=== PATIENT | male | born 1985 | race Caucasian/White ===

== ENCOUNTER 2016-04-28 00:25 | Emergency (ER) | payer MEDICAID ==
[2016-04-28 01:40] LABS: HEMATOCRIT 43.8 % (42.0-54.0); HEMOGLOBIN 14.8 g/dL (13.5-17.5); LYMPHOCYTES 32.3 % (15-50); MCH 28.6 pg (26.0-34.0); MCHC 33.8 g/dL (31.0-37.0); MCV 84.6 fL (80.0-100.0); MEAN PLATELET VOLUME 9.7 fL (7.4-10.4); NEUTROPHILS 58.4 % (40-80); PLATELET COUNT 203 10x3/uL (130-400); RBC 5.18 10x6/uL (4.20-6.10); RDW 12.4 % (11.5-14.5); WBC 6.8 10x3/uL (4.8-10.8)
[2016-04-28 02:16] LABS: ALBUMIN 3.3 g/dL (3.4-5.0); BILIRUBIN - TOTAL 0.27 mg/dL (0.2-1.3); CALCIUM 8.9 mg/dL (8.5-10.1); CARBON DIOXIDE 29.2 mmol/L (21.0-32.0); CREATININE - SERUM 1.4 mg/dL (0.6-1.3); POTASSIUM - SERUM 4.2 mmol/L (3.5-5.1); PROTEIN - SERUM 7.4 g/dL (6.4-8.2)
[2016-04-28 02:17] LABS: APPEARANCE CLEAR (CLEAR); BILIRUBIN NEGATIVE (NEGATIVE); COLOR STRAW (YELLOW); GLUCOSE 1000 mg/dL (NEGATIVE); KETONE NEGATIVE (NEGATIVE); LEUKOCYTE ESTERASE NEGATIVE (NEGATIVE); NITRITE NEGATIVE (NEGATIVE); PROTEIN NEGATIVE (NEGATIVE); SPECIFIC GRAVITY 1.005 (1.005-1.020); UROBILINOGEN NORMAL (NORMAL)
[2016-04-28 02:24] LABS: UDS - AMPHET NEGATIVE QUAL (NEGATIVE); UDS - BARB NEGATIVE QUAL (NEGATIVE); UDS - BENZO NEGATIVE QUAL (NEGATIVE); UDS - COCAINE NEGATIVE QUAL (NEGATIVE); UDS - METH NEGATIVE QUAL (NEGATIVE); UDS - OPIATE NEGATIVE QUAL (NEGATIVE); UDS - PCP NEGATIVE QUAL (NEGATIVE); UDS - THC NEGATIVE QUAL (NEGATIVE)
[2016-04-28 02:53] LABS: MAGNESIUM - SERUM 1.9 mg/dL (1.8-2.4)
== END 2016-04-28 05:21 | disposition home or self-care (01) ==
LOC: D.ER 00:25
PROVIDERS: Emergency Medicine
DX: R45.851 Suicidal ideations (principal); F32.9 Major depressive disorder, single episode, unspecified; E11.65 Type 2 diabetes mellitus with hyperglycemia; F17.200 Nicotine dependence, unspecified, uncomplicated